=== PATIENT | female | born 1975 ===

== ENCOUNTER 2017-02-19 05:42 | Day surgery (SDC) | payer OTHER ==
[2017-02-19] VITALS (10 sets, daily range): BP systolic 124–142; BP diastolic 67–87
[~2017-02-19] VITALS: Ht 170.2 cm; Wt 86.2 kg
[~2017-02-19 05:42] MED LIST: CABERGOLINE0.5 MG PO; NORCO 10-325 T1 EACH ORAL; XANAX0.25 MG ORAL
[2017-02-19] MEDS ORDERED: oxyCONTIN 20mg tab ORAL ONE (06:00)
[2017-02-19] MEDS ORDERED: ceFAZolin 1gm in D5W 55ml IVP ONE (06:00)
[2017-02-19] MEDS ORDERED: celeBREX 200mg Cap **SURGERY PATIENTS ONLY ORAL ONE ×2 (06:00→06:29)
[2017-02-19] MEDS ORDERED: LR 1000ml 1,000 ML IVLG SCH (06:34)
--- NOTE | 2017-02-19 06:34 | Anethesia Preoperative Eval ---
Anesthesia Pre-op PMH/ROS General Date of Evaluation: Feb 19, 2017 Anesthesiologist: Theron ASA Score: ASA 2 Mallampati Score Class I : Soft palate, uvula, fauces, pillars visible Class II: Soft palate, uvula, fauces visible Class III: Soft palate, base of uvula visible Class IV: Only hard plate visible Mallampati Classification: Class II Surgeon: Sly Diagnosis: Right tennis elbow Surgical Procedure: Right elbow tendon release Anesthesia History: none Family History: no anesthesia problems Allergies: Coded Allergies: POVIDONE-IODINE (Verified Allergy, Mild, 02/19/17) SKIN RASH SOAP (Verified Allergy, Mild, 02/19/17) SKIN RASH Medications: see eMAR Past Medical History Cardiovascular: Denies: HTN, CAD, DE, valve dz, arrhythmia, other Pulmonary: Denies: asthma, COPD, DALE, other Gastrointestinal/Genitourinary: Denies: GERD, CRI, ESRD, other Neurologic/Psychiatric: Reports: depression/anxiety, Denies: dementia, CVA, TIA, other Endocrine: Denies: DM, hypothyroidism, steroids, other HEENT: Denies: cataract (L), cataract (R), glaucoma, [place] (L), [place] (R), other Hematology/Immune: Denies: anemia, DVT, bleeding disorder, other Musculoskeletal/Integumentary: Denies: OA, RA, DJD, DDD, edema, other Other: obesity PSxH Narrative: Left ERCB Anesthesia Pre-op Phys. Exam Physician Exam see chart Constitutional: NAD Cardiovascular: RRR Respiratory: CTA Airway Exam Mallampati Score: Class II MO: full ROM: full Anesthesia Pre-op A/P Labs see chart Urine Test Test 02/19/17 05:55 Urine HCG, Qualitative Pending Studies Pre-op Studies: EKG - sr Risk Assessment & Plan Assessment: ASA II Plan: GA Status Change Before Surgery: No Pre-Antibiotics Drug: Ancef 2g Given Within 1 Hr of Incision: Yes Time Given: 06:55 ATUL BURNS M.D. Feb 19, 2017 06:34
[2017-02-19] MEDS ORDERED: Bupivacaine 0.25% Inj 30ml INJ ONE (06:41)
[2017-02-19] MEDS ORDERED: DiphenhydrAMINE 50mg/ml Inj IVP PRN (06:45)
[2017-02-19] MEDS ORDERED: Midazolam 2mg/2ml Inj ONE (06:45)
[2017-02-19] MEDS ORDERED: Metoclopramide 10mg/2ml Inj ONE (06:45)
[2017-02-19] MEDS ORDERED: Ketamine 500mg Inj ONE (06:45)
[2017-02-19] MEDS ORDERED: D5 1/2NS 1,000 ML IV SCH (06:45)
[2017-02-19] MEDS ORDERED: fentaNYL 100 mcg/2 mL IV ONE (06:45)
[2017-02-19] MEDS ORDERED: LR 1000ml ONE (06:45)
[2017-02-19] MEDS ORDERED: LORazepam Inj 2mg/ml 1ml IV PRN (06:45)
[2017-02-19] MEDS ORDERED: Midazolam 2mg/2ml Inj IVP PRN (06:45)
[2017-02-19] MEDS ORDERED: HYDROmorphone 1mg/ml Carpuject SUBQ PRN (06:45)
[2017-02-19] MEDS ORDERED: Dexamethasone 4mg/ml vial ONE (06:45)
[2017-02-19] MEDS ORDERED: Sterile Water Irrig 1000ml IRRIG ONE (06:45)
[2017-02-19] MEDS ORDERED: Norco 5mg/325mg tab ORAL PRN (06:45)
[2017-02-19] MEDS ORDERED: Tylenol #3 tab (300mg/30mg) ORAL PRN (06:45)
[2017-02-19] MEDS ORDERED: Ketorolac 30mg Inj IV PRN (06:45)
[2017-02-19] MEDS ORDERED: Metoclopramide 10mg/2ml Inj IVP PRN (06:45)
[2017-02-19] MEDS ORDERED: fentaNYL 100 mcg/2 mL IV PRN (06:45)
[2017-02-19] MEDS ORDERED: Hydromorphone 0.5mg/0.5ml inj IVP PRN (06:45)
[2017-02-19] MEDS ORDERED: Lidocaine 1% MPF 10mg/ml 5ml ONE (06:45)
--- NOTE | 2017-02-19 06:45 | Pre-Procedure Note/Attestation ---
Pre-Procedure Note/Attestation Complete Prior to Procedure Planned Procedure: right Procedure Narrative: elbow ECRB release Indications for Procedure Pre-Operative Diagnosis: right elbow lateral epiconditis Attestation I attest that I discussed the nature of the procedure; its benefits; risks and complications; and alternatives (and the risks and benefits of such alternatives ), prior to the procedure, with the patient (or the patient's legal assistance representative). I attest that, if there was a reasonable possibility of needing a blood transfusion, the patient (or the patient's legal assistance representative) was given the [facility] standardized written summary, pursuant to the Bryan Homero Blood Safety Act ([place] Health and Safety Code # 1645, as amended). I attest that I re-evaluated the patient just prior to the surgery and that there has been no change in the patient's H&P, except as documented below: LISANDRO TAFOYA Feb 19, 2017 06:45
--- NOTE | 2017-02-19 06:46 | Operative Note - PDOC ---
Operative Note Operative Note Pre-op Diagnosis: right elbow lateral epiconditis Procedure: se op report Post-op Diagnosis: same as pre-op plus Operative Findings: consistent w/pre-op dx studies Anesthesia: MAC Specimen: none Complications: none Condition: stable Estimated Blood Loss: none Implant(s) used?: LISANDRO Chandler Feb 19, 2017 06:46
[2017-02-19] MEDS ORDERED: NS Irrig 1000ml IRRIG ONE (06:50)
--- NOTE | 2017-02-19 07:11 | 48 Hour Post Anesthesia Eval ---
Post Anesthesia Evaluation Procedure: Right extensor radialis brevis release Date of Evaluation: Feb 19, 2017 Time of Evaluation: 08:30 Blood Pressure Systolic: 139 0: 86 Pulse Rate: 62 Respiratory Rate: 19 Temperature (Fahrenheit): 97 O2 Sat by Pulse Oximetry: 96 Airway: patent Nausea: No Vomiting: No Pain Intensity: 1 Hydration Status: adequate Cardiopulmonary Status: at baseline Mental Status/LOC: patient returned to baseline Post-Anesthesia Complications: 0 Follow-up care needed: ready to discharge ATUL BURNS M.D. Feb 19, 2017 07:11
--- NOTE | 2017-02-19 07:11 | Immediate Post-Op Evaluation ---
Immediate Post-Op Evalulation Immediate Post-Op Evalulation Procedure: Right extensor radialis brevis release Date of Evaluation: Feb 19, 2017 Time of Evaluation: 07:39 IV Fluids: 700 Blood Products: 0 Estimated Blood Loss: 2 Urinary Output: 0 Blood Pressure Systolic: 126 Blood Pressure Diastolic: 67 Pulse Rate: 81 Respiratory Rate: 16 O2 Sat by Pulse Oximetry: 100 Temperature (Fahrenheit): 97 Pain Score (1-10): 0 Nausea: No Vomiting: No Complications 0 Patient Status: awake, reacts, patent, none Hydration Status: adequate Drug: Ancef 2g Given Within 1 Hr of Incision: Yes Time Given: 06:50 ATUL BURNS M.D. Feb 19, 2017 07:11
--- NOTE | 2017-02-19 22:31 | Operative Note - Dictated ---
DATE OF OPERATION: 02/19/2017 PREOPERATIVE DIAGNOSIS: Right lateral epicondylitis. POSTOPERATIVE DIAGNOSIS: Right lateral epicondylitis. PROCEDURE: 1. Right extensor carpi radialis brevis release (lateral tennis elbow release). 2. Right elbow arthrotomy. SURGEON: Bulmaro Heart M.D. ANESTHESIA: MAC. INDICATION FOR PROCEDURE: The patient is a pleasant female, who has had progressive bilateral tennis elbow. She underwent ERCB on the left elbow approximately a month ago, was doing relatively well. Given her clinical improvement, she elected to undergo right ERBC surgery release. Risks, limitations, expectations, and complications of the procedure were discussed in detail including weakness, continued pain, infection, risk of anesthesia, etc. All questions were addressed. DESCRIPTION OF PROCEDURE: Informed consent was obtained. The patient was brought to the operating room and placed the patient under general anesthesia. Right arm was prepped and draped in a sterile manner. The skin incision along the lateral epicondyle was marked out. Esmarch was used to exsanguinate the extremity. The skin was incised. Subcutaneous tissue was dissected. The ERCB and lateral epicondyle were visualized. Incision along the ERCB starting 5 mm proximal to the lateral epicondyle area extending distally along the anterior 1/3 of the ERBC tendon was performed. The lateral epicondyle was identified. Small amount of bone was removed from the lateral epicondyle area. of the ERCB where the area of tendinosis was identified and out. At this point, the wound was copiously irrigated through the arthrotomy site. The lateral aspect of the radiocapitellar joint was visualized, free of any loose bodies or of any synovitis. At this point, the fascia along the ERCB distally was approximated with 2-0 Vicryl suture. Subcutaneous tissue was approximated using 3-0 Monocryl sutures. Steri-Strips and a sterile dressing were applied. The patient was awoken and taken to recovery room with stable vital signs. ESTIMATED BLOOD LOSS: None. COMPLICATIONS: None. SPECIMENS: None. IMPLANTS: None. Bulmaro Heart M.D. DR: HARI JOB#: [id number] CC:
== END 2017-02-19 09:00 | disposition home or self-care (01) ==
LOC: SUR 05:42
DX: M77.11 Lateral epicondylitis, right elbow (principal); F32.9 Major depressive disorder, single episode, unspecified; F41.9 Anxiety disorder, unspecified; E66.9 Obesity, unspecified; Z91.041 Radiographic dye allergy status; Z91.09 Other allergy status, other than to drugs and biological substances
CPT/HCPCS: 24000; 64718; 81025; J0690; J1100; J1200; J1885; J2250; J2405; J2765; J3010; J3490; J7120; 94003; 94150